=== PATIENT | female | born 1990 | race Caucasian/White ===

== ENCOUNTER 2023-05-05 22:43 | Emergency (ER) | payer SELFPAY ==
[2023-05-05 22:48] VITALS: BMI 34.5
[2023-05-05] MEDS ORDERED: SODIUM CHLORIDE 1,000 ML IV STA (23:16)
[2023-05-05] MEDS ORDERED: predniSONE 20 MG TABLET (UD) PO ONE (23:16)
[2023-05-05] MEDS ORDERED: ONDANSETRON 4 MG/2 ML VIAL IVPUSH ONE (23:16)
[2023-05-05] MEDS ORDERED: FAMOTIDINE 20 MG/50 ML IVPB 20 MG/50 ML MG IVPB ONE ×2 (23:18→23:36)
[2023-05-05] MEDS ORDERED: ALBUTEROL SO4 2.5/IPRATROPIUM 0.5 INH SOL 3 ML VIAL.NEB. NEB ONE (23:36)
[2023-05-05] MEDS ORDERED: ONDANSETRON 4 MG/2 ML VIAL ONE (23:36)
[2023-05-05] MEDS ORDERED: predniSONE 20 MG TABLET (UD) ONE (23:36)
[2023-05-05] MEDS: ALBUTEROL SO4 2.5/IPRATROPIUM 0.5 INH SOL 3 ML VIAL.NEB. NEB SCH (23:56)
[2023-05-06] MEDS: ALBUTEROL SO4 2.5/IPRATROPIUM 0.5 INH SOL 3 ML VIAL.NEB. NEB SCH (00:01)
[2023-05-06 00:22] LABS: BASO % 0.5 % (0-2.0); EOS % 4.6 % (0-4.5); HEMATOCRIT 38.5 % (32.4-45.2); HEMOGLOBIN 12.8 GM/dL (10.7-15.3); MCH 28.3 pg (25.7-33.7); MCHC 33.2 g/dl (32.0-36.0); MEAN CELL VOLUME 85.1 fl (80-96); MEAN PLT VOLUME 9.5 fl (7.5-11.1); MONO % 6.2 % (3.8-10.2); NEUT % 58.7 % (42.8-82.8); PLATELET COUNT 237 10^3/uL (134-434); RBC 4.52 M/mm3 (3.60-5.2); RDW 14.6 % (11.6-15.6); WHITE BLOOD COUNT 10.5 K/mm3 (4.0-10.0)
[2023-05-06 00:26] LABS: EPI CELLS 19 /uL (0-25.1); HYALINE CASTS 0 /uL (0-3.1); PH,URINE 5.5 (5.0-8.0); URINE APPEARANCE CLEAR; URINE BACTERIA 348 /uL (0-1359); URINE BILIRUBIN NEGATIVE (NEGATIVE); URINE COLOR YELLOW; URINE GLUCOSE (UA) NEGATIVE (NEGATIVE); URINE KETONE TRACE (NEGATIVE); URINE LEUK ESTERASE TRACE (NEGATIVE); URINE NITRITE NEGATIVE (NEGATIVE); URINE PROTEIN NEGATIVE (NEGATIVE); URINE WBC 27 /uL (0-25.8)
[2023-05-06 00:33] LABS: VENOUS O2 SATURATION 39.8 % (70-80); VENOUS PCO2 54.6 mmHg (38-52); VENOUS PH 7.302 (7.310-7.410)
[2023-05-06 00:36] LABS: INR 1.03 (0.83-1.09)
[2023-05-06 00:38] LABS: ACTIVATED PTT 31.7 SECONDS (25.2-36.5)
[2023-05-06 00:42] LABS: POTASSIUM 4.3 mmol/L (3.5-5.1)
[2023-05-06 00:44] LABS: ALBUMIN 4.4 g/dl (3.4-5.0); BLOOD UREA NITROGEN 16.8 mg/dL (7-18); CALCIUM 9.7 mg/dL (8.5-10.1)
[2023-05-06 00:47] LABS: CREATININE 0.9 mg/dL (0.55-1.3)
[2023-05-06 00:48] LABS: TOT PROT 8.3 g/dl (6.4-8.2)
[2023-05-06 00:50] LABS: BILIRUBIN,TOTAL 0.4 mg/dL (0.2-1)
[2023-05-06 03:07] VITALS: BP 128/76; PULSE 72; RESP 18; TEMP 98.1
[2023-05-06 06:49] LABS: URINE RBC 25.5 /uL (0-23.9)
== END 2023-05-06 03:06 | disposition home or self-care (01) ==
LOC: JER 22:43
PROC: 3E033GC Introduction of Other Therapeutic Substance into Peripheral Vein, Percutaneous Approach (ICD-10-PCS; 2023-05-05)
PROC: 3E033GC Introduction of Other Therapeutic Substance into Peripheral Vein, Percutaneous Approach (ICD-10-PCS; principal; 2023-05-06)
PROC: 3E0F7GC Introduction of Other Therapeutic Substance into Respiratory Tract, Via Natural or Artificial Opening (ICD-10-PCS; 2023-05-06)
DX: R06.02 Shortness of breath (principal); R05.9 Cough, unspecified; R07.89 Other chest pain; R11.2 Nausea with vomiting, unspecified; R42 Dizziness and giddiness; Z20.822 Contact with and (suspected) exposure to COVID-19
CPT/HCPCS: 0241U-QW; 36415; 71045-TC-FY; 80053; 81003; 82803; 84484; 84702; 85025; 85610; 85730; 87086; 93005; 93010; 99285-25